=== PATIENT | female | born 1975 | race Caucasian/White ===

== ENCOUNTER 2017-10-06 03:37 | Emergency (ER) | payer SELFPAY ==
[~2017-10-06] VITALS: Ht 165.1 cm; Wt 165.0 kg
[2017-10-06 03:39] VITALS: BP 180/78; PULSE 91; RESP 18; TEMP 98.1; O2SAT 96
[2017-10-06 03:51] VITALS: BP 127/75; PULSE 80; RESP 22
[2017-10-06] MEDS ORDERED: ALBUAER3 INH (03:51)
--- NOTE | 2017-10-06 03:59 | PD ---
HPI Chief Complaint: Respiratory Symptoms Time Seen by Provider: 03:51 Travel History International Travel<30 days: No Contact w/Intl Traveler<30days: No Traveled to known affect area: No History of Present Illness HPI The patient was seen and examined in the presence of the nurse. This patient complains of wheezing and congestion. Has history of COPD. No longer smokes. Severity is moderate. No fever or productive cough. No chest pain. No alleviating factors. No exacerbating factors PFSH Past Medical History Asthma: Yes COPD: Yes Thyroid Disease: Yes ?: Not Past Surgical History Section: Yes (x2) Cholecystectomy: Yes Social History Alcohol Use: No Tobacco Use: No Substance Use: No Allergies-Medications (Allergen,Severity, Reaction): Coded Allergies: No Known Allergies (Unverified , 10/06/17) Reported Meds & Prescriptions Reported Meds & Active Scripts Active Prednisone 20 Mg Tab 40 Mg PO DAILY Take 40 mg (2 tablets) daily for 5 days Reported Proair Hfa 8.5 GM Inh (Albuterol Sulfate) 90 Mcg/Act Aer 1 Puff INH Q4H PRN 108 mcg/actuation Review of Systems General / Constitutional: No: Fever Eyes: No: Visual changes HENT: Positive: Congestion, No: Headaches Cardiovascular: No: Chest Pain or Discomfort Respiratory: Positive: Cough, Shortness of Breath, Wheezing Gastrointestinal: No: Abdominal Pain Genitourinary: No: Dysuria Musculoskeletal: No: Pain Skin: No Rash Neurologic: No: Weakness Psychiatric: No: Depression Endocrine: No: Polydipsia Hematologic/Lymphatic: No: Easy Bruising Physical Exam Narrative GENERAL: Well-nourished, well-developed patient in no apparent distress. SKIN: Focused skin assessment reveals no rash and nodules. Skin is Warm and dry. HEAD: Atraumatic. Normocephalic. EYES: Pupils equal and round. No scleral icterus. No injection or drainage. ENT: No nasal bleeding or discharge. Mucous membranes pink and moist. NECK: Trachea midline. No JVD. CARDIOVASCULAR: Regular rate and rhythm. No murmur appreciated. RESPIRATORY: No accessory muscle use. Expiratory wheeze, no crackles. Breath sounds equal bilaterally. GASTROINTESTINAL: Abdomen soft, non-tender, nondistended. Hepatic and splenic margins not palpable. MUSCULOSKELETAL: No obvious deformities. No clubbing. No cyanosis. No edema. NEUROLOGICAL: Awake and alert. No obvious cranial nerve deficits. Motor grossly within normal limits. Normal speech. PSYCHIATRIC: Appropriate mood and affect; insight and judgment normal. Data Data Last Documented VS Vital Signs Date Time Temp Pulse Resp B/P (MAP) Pulse Ox O2 Delivery O2 Flow Rate FiO2 10/06/17 04:07 98 21 10/06/17 03:51 80 22 127/75 (92) 10/06/17 03:47 Room Air 10/06/17 03:39 98.1 Orders Orders Albuterol-Ipratropium Neb (Duoneb Neb) (10/06/17 04:00) Prednisone (Deltasone) (10/06/17 04:00) [facility] Medical Decision Making Medical Screen Exam Complete: Yes Emergency Medical Condition: Yes Medical Record Reviewed: Yes Differential Diagnosis Asthma, COPD, bronchitis Narrative Course I have reviewed the patient's electronic medical record. I gave her series of nebulizer treatments I gave her dose of prednisone On recheck she is clinically improved and feels much better. Diagnosis Primary Impression: COPD with acute exacerbation Additional Instructions: The patient was advised to follow up with their physician and return if they worsen. Med/Other Pt SpecificInfo: Prescription(s) given Scripts Prednisone (Prednisone) 20 Mg Tab 40 MG PO DAILY, #10 TAB 0 Refills Take 40 mg (2 tablets) daily for 5 days Prov: Mark Avila MD 10/06/17 Disposition: 01 DISCHARGE HOME Condition: Stable Mark Avila MD Oct 06, 2017 03:59
[2017-10-06] MEDS ORDERED: RESP: ALBUTEROL 2.5 MG/IPRATROPIUM 0.5 MG NEB (SCH) NEB ONE (04:00)
[2017-10-06] MEDS ORDERED: predniSONE 20 MG TAB PO ONE (04:00)
[2017-10-06 04:07] VITALS: O2SAT 98
[2017-10-06] MEDS ORDERED: PRED20 PO (05:05)
== END 2017-10-06 05:20 | disposition home or self-care (01) ==
LOC: NEPE 03:37
DX: J44.1 Chronic obstructive pulmonary disease with (acute) exacerbation (principal); E07.9 Disorder of thyroid, unspecified; Z79.899 Other long term (current) drug therapy
CPT/HCPCS: 94640; 94664; 99283; J7512